=== PATIENT | female | born 2000 | race Caucasian/White ===

== ENCOUNTER 2020-12-22 01:04 | Emergency (ER) | payer BC, SELFPAY ==
[2020-12-22 01:11] VITALS: BP 134/90; PULSE 77; RESP 16; TEMP 36.7; O2SAT 97; BMI 25.8
--- NOTE | 2020-12-22 01:40 | PC.NURSE ---
Laceration to right side of upper lip sutured with 6-0 Chromic, [address] Lidocaine 1% administered by just prior to sutures. Pt tolerated procedure well, discussed discharge plan at the bedside, with plan to medicate with antibiotics prior to discharge.
[2020-12-22] MEDS: Lidocaine HCl 1 % MPF 5 ML VIAL SUBCUT (01:44)
[2020-12-22] MEDS: Amoxicillin/Potassium Clav 875 MG TABLET PO (01:47)
--- NOTE | 2020-12-22 01:47 | ED.GENADULT ---
HPI - General Adult General Chief complaint: Wound/Laceration Stated complaint: Lip laceration Time Seen by Provider: 12/22/20 01:22 Source: patient Mode of arrival: ambulatory Limitations: no limitations History of Present Illness HPI narrative: 20-year-old female who presents emergency department for laceration to her left upper lip that occurred prior to coming to the emergency department. Patient states she has a new puppy and was given the puppy a kiss, the puppy then bit her left upper lip. Patient states that she bled a lot believes able to control bleeding with direct pressure. She states that the puppy has all of its vaccinations. Patient states that her tetanus status is also up today and she had a tetanus shot within 1 year. She has no other injury. Related Data Home Medications Medication Instructions Recorded Confirmed sertraline 1 tab PO DAILY 12/22/20 12/22/20 Allergies Allergy/AdvReac Type Severity Reaction Status Date / Time No Known Allergies Allergy Verified 12/22/20 01:15 Review of Systems Review of Systems: Yes all other systems are reviewed and are negative PMFSH Past Medical History PMFSH Narrative: Patient has a history of anxiety, she denies tobacco use, she occasionally drinks alcohol, she denies drug use. Medical History IUD (intrauterine device) in place Surgical History Corinne teeth removed Social History Social History Advance Directives: No Physical Exam Vital Signs: Vital Signs: Last Vital Signs Temp 98.1 F 12/22/20 01:11 Pulse 77 12/22/20 01:11 Resp 16 12/22/20 01:11 BP 134/90 H 12/22/20 01:11 Pulse Ox 97 12/22/20 01:11 Body Mass Index 25.8 Const: General: cooperative and healthy appearing Nutritional Appearance: well nourished Orientation/consciousness: oriented to person Limitations: no limitations HENMT: Other: The patient has a laceration to the left upper lip measuring 0.5 cm in length, with a 1 to 2 mm depth, Neuro: General: oriented to person Course Course Course Narrative: The patient has a small laceration to her left upper lobe caused by a dog bite. The laceration was repaired with 6.0 chromic gut x3 sutures. The patient will be started prophylactically on Augmentin 875 twice a day for 5 days to try to prevent infection. Bacitracin was applied to the wound the patient was given her 1st dose of Augmentin here in the emergency department. Patient was given printed and verbal instructions and discharged home. Procedures Laceration Lip laceration: Site: lip (Left upper lip) Side (If applicable): left Size (cm): 0.5 Description: linear Depth: simple, single layer Local Anesthetic: lidocaine 1% Amount of anesthesia used (mL): 3 Skin layer closed with: other (Chromic gut) Size (cm): 6-0 (Chromic gut) Number of sutures: 3 Technique: simple, interrupted Discharge Plan Discharge Clinical Impression: Laceration of lip Qualifiers: Encounter type: initial encounter Qualified Code(s): S01.511A - Laceration without foreign body of lip, initial encounter Dog bite Qualifiers: Encounter type: initial encounter Qualified Code(s): W54.0XXA - Bitten by dog, initial encounter Patient Disposition: Home, Self-Care Instructions: Facial Laceration (ED), Animal Bite (ED) Additional Instructions: The laceration was closed with 6.0 chromic gut suture, this is a dissolvable suture that should dissolve in 7-10 days. If the sutures do not dissolved then follow-up with your doctor to have them removed. Apply bacitracin twice a day until the sutures are removed or fall out. After the sutures come out, apply vitamin E to the wound for 2 weeks. Vitamin-E slows down healing and help prevent scarring. Take Augmentin 875/125, 1 pill every 12 hours for 5 days to try to prevent infection of the dog bite. Take ibuprofen 200 mg pills, 3 pills every 6 hours as needed for pain. Take Tylenol (acetaminophen) 500 mg pills, 2 pills every 4 to 6 hours as needed for pain. Follow-up with your doctor in 7-10 days if sutures do not dissolve. Please return to the emergency department if your symptoms get worse or if you develop any symptoms that are concerning to you. Prescriptions: No Action sertraline 50 mg tablet 1 tab PO DAILY RF: 0
== END 2020-12-22 02:12 | disposition home or self-care (01) ==
PROVIDERS: Emergency Provider Emergency Medicine Emergency Medical Services; PCP Nurse Practitioner Family
DX: S01.511A Laceration without foreign body of lip, initial encounter (principal); W54.0XXA Bitten by dog, initial encounter; Y93.89 Activity, other specified; Y92.019 Unspecified place in single-family (private) house as the place of occurrence of the external cause; Y99.9 Unspecified external cause status
CPT/HCPCS: 12011; 99283; 99284